=== PATIENT | female | born 1980 | race Caucasian/White ===

== ENCOUNTER 2018-08-26 08:36 | Inpatient (IN) ==
--- NOTE | 2018-08-26 09:40 | OB/GYN Procedure Note ---
Addendum entered and electronically signed by Herlinda Krishna MD 08/27/18 00:18: I personally supervised Dr. Love with the procedure below and agree with documentation below. Herlinda Krishna M.D. Original Note: Delivery - Delivery Date: 08/26/18 Provider: Apple Love (with Dr. Krishna) Intrapartum events: precipitous labor- <3hr Delivery induction: none Delivery monitor: none Anesthesia: local Quantitated Blood Loss: 50 - (s) A Infant Delivery Date: 08/26/18 Delivery Time: 08:04 (Delivered in car unattended by medical personel) Presentation: vertex Position: unknown Route of delivery: Gender: Female Viability: Viable Pounds: 5 Ounces: 15 Weight Gram: 2.685 kg Placenta: spontaneous Cord: 3 umbilical vessels - Repair Episiotomy: none Laceration Description: Perineal - 2nd Degree - Complications Delivery complications: other (Infant delivered in car en route to hospital unattended by medical personel.) Delivery comments: 38yo @ 39.2wga by US presented to L&D via EMS after delivering a viable female infant, without medical personnel, in her car @ 0804. Placenta undelivered with cord hanging from vagina with clamp. Pt moved to bed on L&D at arrival & perineum inspected. Second degree perineal laceration seen. 20cc of lidocaine injected prior to repair. Placenta delivered spontaneously, intact, with 3 vessel cord & held for possible Path exam. 10 units of oxytocin IM given. Laceration repaired with 3-0 Vicryl. EBL 50cc from repair. Drs. Love & Tomi present for placenta delivery & perineal repair. - Disposition Mom disposition: stable in LDR [place] disposition: taken to nursery
[2018-08-26 10:25] LABS: Basophils % 0.4 %; Eosinophils % 0.3 %; Hematocrit 33.4 % (35.3-44.9); Hemoglobin 10.9 g/dL (11.5-15.4); Immature Granulocytes % 0.4 % (0-4); Lymphocytes % 17.9 %; Mean Corpuscular HGB Conc 32.6 g/dL (31.6-35.5); Mean Corpuscular Hemoglobin 29.7 pg (28.0-33.3); Mean Platelet Volume 9.8 fL (9.4-12.4); Monocytes # 0.6 K/mcL (0.0-1.3); Neutrophils # 8.6 K/mcL (1.6-8.9); Platelet Count 237 K/mcL (140-400); Red Blood Count 3.67 M/mcL (3.82-4.97); Red Cell Distribution Width 12.6 % (11.5-14.5)
--- NOTE | 2018-08-26 10:27 | OB/GYN History & Physical ---
Date of Encounter: 08/26/18 Time of Encounter: 08:40 Assessment and Plan (1) Precipitous delivery, delivered (current hospitalization) Current visit: Yes Status: Acute (2) Advanced maternal age (AMA) in Current visit: Yes Status: Acute (3) Chronic hypertension affecting Current visit: Yes Status: Acute History of Present Illness HPI: Ms. Lim is a 38yo @ 39.2 wga by US who presents to L&D via EMS having delivered a viable female in her car @ 0804. She felt pressure @ 0530 & & ctxs @ 0630. The pt was en route to the hospital when she made her pulled into his mother's house around 0730 b/c she felt the "baby was coming." Pt states the baby delivered @ the same time her water broke. She denies VB, abnml vaginal discharge, CP, SOB, RUQ pain, MARQUIS, vision changes or dysuria. This was complicated by hypothyroid (she ran out of her Rx a few weeks ago & never got a refill), cHTN on 100mg labetalol BID, & anxiety on 50mg Zoloft BID. She did take her labetalol this morning. She doesn't check her BPs at home nor does she keep a log. She's uncertain what her BPs typically run. She sees Dr. Grimm for her PNC, she missed her last 2 appts. Past Med Surg Social Fam HX - Past Medical History Medical history: hypertension, thyroid disease Additional medical history: hypothyroidism Psychiatric history: anxiety - Past Surgical History Additional surgical history: right foot sx- pin placed s/p bunion removal @ 17yo - Social History Smoking Status: Never smoker Alcohol use: none Drug use: none - Family History Mother Living Status: Still Living Hx Family Cardiac Disorders: No Hx Family Respiratory Disorders: No Hx Family Cancer: No Hx Family GI Disorders: No Hx Family Genitourinary Disorders: No Hx Family Endocrine Disorder: No Hx Family Musculoskeletal Disorders: No Hx Family Neuromuscular Disorders: No Hx Family Neurologic Disorders: No Hx Family HEENT Disorders: No Hx Family Autoimmune Disorders: No Hx Family Reproductive Disorders: No Hx Family Psychosocial Disorders: No Hx Family Medical Disorders: No Obstetrical History - Pregnancies : 2 Para: 1 Term: 0 : 1 (2006- female infant, , mIOL for Pre-E w/o SF, 7.6 pounds) Livin Medications and Allergies Sertraline [Zoloft] 50 mg PO BID 08/24/15 [History] raNITIdine HCl [Zantac] 150 mg PO DAILY 01/06/18 [History] Labetalol [Trandate] 1 tab PO BID 08/26/18 [History] Levothyroxine [Synthroid] 1 tab PO DAILY 08/26/18 [History] Vit #108/Iron/FA [ One Tablet] 1 tab PO DAILY 08/26/18 [History] Allergy/AdvReac Type Severity Reaction Status Date / Time No Known Allergies Allergy Verified 08/24/15 18:49 Review of System OB All systems PM: reviewed and no additional remarkable complaints except as stated (per HPI) Exam - Constitutional Constitutional: well developed, well nourished, no acute distress, average body habitus - HEENT HEENT: EOMI, Normocephaly - Neck Neck exam: full ROM (Lungs: no Accessory muscle use) - Abdomen Abdomen: Present: non tender (: clamped cord hanging out of vagina, second degree perineal laceration noted, no lesions on vulva or vagina, normal external genitalia) Results Result Diagrams: 08/26/18 09:10 08/26/18 09:10 All other labs normal.
[2018-08-26 10:31] LABS: Alanine Aminotransferase 8 Units/L (7-52); Aspartate Amino Transferase 12 Units/L (13-39); BUN/Creatinine Ratio 13 (6-26); Blood Urea Nitrogen 9 mg/dL (6-20); Lactate Dehydrogenase 141 Units/L (140-271); Uric Acid 3.9 mg/dL (2.3-7.6); eGFR For Non-African Americans > 60 (> 60)
[2018-08-26] MEDS ORDERED: Ibuprofen 600 MG TABLET PO ONE (10:36)
[2018-08-26] MEDS ORDERED: *HR* Oxytocin 10 UNIT/ML VIAL IM ONE (11:08)
[2018-08-26] MEDS ORDERED: Acetaminophen 325 MG TABLET PO PRN (11:24)
[2018-08-26] MEDS: Ibuprofen 600 MG TABLET PO SCH (20:38)
[2018-08-27] MEDS: Ibuprofen 600 MG TABLET PO SCH (05:22)
[2018-08-27] MEDS ORDERED: Levothyroxine 25 MCG TABLET PO SCH (06:30)
[2018-08-27] MEDS ORDERED: Famotidine 20 MG TABLET PO SCH (07:30)
[2018-08-27 07:48] VITALS: BP 145/87
--- NOTE | 2018-08-27 08:45 | Discharge Summary ---
Date of Encounter: 08/27/18 Time of Encounter: 08:44 - Discharge Diagnosis (1) Status post vaginal delivery Priority: Primary Status: Acute Comments: Pt meeting PPD1 milestones. Reports pain is controlled with Ibuprofen. Reports good mood. Pt plans to work with today for pumping and . Discussed BC options and safe spacing. Denies BC at this time, partner plans to get a vasectomy. Pt desires discharge today and to guest while infant is in SCN. - Discharge Medications Prescriptions: Ibuprofen [Motrin] 600 mg PO Q6HR #60 tablet Breast Pump [BREAST PUMP] 1 each .ROUTE AD #1 each Docusate [Colace] 100 mg PO BID #60 capsule Home Medications: Sertraline [Zoloft] 50 mg PO BID 08/24/15 [History] raNITIdine HCl [Zantac] 150 mg PO DAILY 01/06/18 [History] Labetalol [Trandate] 1 tab PO BID 08/26/18 [History] Levothyroxine [Synthroid] 1 tab PO DAILY 08/26/18 [History] Vit #108/Iron/FA [ One Tablet] 1 tab PO DAILY 08/26/18 [History] Breast Pump [BREAST PUMP] 1 each .ROUTE AD #1 each 08/27/18 [Rx] Docusate [Colace] 100 mg PO BID #60 capsule 08/27/18 [Rx] Ibuprofen [Motrin] 600 mg PO Q6HR #60 tablet 08/27/18 [Rx] Allergies/Adverse Reactions: Allergy/AdvReac Type Severity Reaction Status Date / Time No Known Allergies Allergy Verified 08/24/15 18:49 Data Procedures and tests throughout hospitalization: Laboratory Tests 08/26/18 08/26/18 09:10 09:10 WBC 11.3 H RBC 3.67 L Hgb 10.9 L Hct 33.4 L MCV 91.0 MCH 29.7 MCHC 32.6 RDW 12.6 Plt Count 237 MPV 9.8 Immature Gran % 0.4 Seg Neutrophils % 76.0 Lymphocytes % 17.9 Monocytes % 5.0 Eosinophils % 0.3 Basophils % 0.4 Neutrophils # 8.6 Lymphocytes # 2.0 Monocytes # 0.6 Eosinophils # 0.0 Basophils # 0.0 BUN 9 Creatinine 0.70 Est GFR ( Amer) > 60 Est GFR (Non-Af Amer) > 60 BUN/Creatinine Ratio 13 Uric Acid 3.9 AST 12 L ALT 8 Lactate Dehydrogenase 141 Labs on day of discharge: Labs from last 24 hours 08/26/18 08/26/18 09:10 09:10 WBC 11.3 H RBC 3.67 L Hgb 10.9 L Hct 33.4 L MCV 91.0 MCH 29.7 MCHC 32.6 RDW 12.6 Plt Count 237 MPV 9.8 Immature Gran % 0.4 Seg Neutrophils % 76.0 Lymphocytes % 17.9 Monocytes % 5.0 Eosinophils % 0.3 Basophils % 0.4 Neutrophils # 8.6 Lymphocytes # 2.0 Monocytes # 0.6 Eosinophils # 0.0 Basophils # 0.0 BUN 9 Creatinine 0.70 Est GFR ( Amer) > 60 Est GFR (Non-Af Amer) > 60 BUN/Creatinine Ratio 13 Uric Acid 3.9 AST 12 L ALT 8 Lactate Dehydrogenase 141 Date of admission: 08/26/18 08:36 Primary care physician: Sandie Grossman CNP Consults: 08/26/18 11:24 Consult to Draw End Hand [CONS] Routine Comment: Vaginal delivery, consult needed Consult to Android Programmer [CONS] Routine Reason for SW Consult: Limited care, precipitous delivery outside of institution, in car, missed appointments at the end of Discharging clinician: Sandra Fernando Anticipated date of discharge: 08/27/18 - Patient Status Disposition: Home, Self-Care Condition: Good Functional capacity at discharge: independent ambulation Overall status at discharge: patient is back to baseline - Discharge Instructions Follow Up With: Sandie Grossman CNP [Primary Care Provider] - Malik Grimm MD [Partnered Physician] - - Diet and Activity Activity: increase activity as tolerated Diet: advance to your usual diet Hospital Course Reason for admission: IUP at term Delivery: Episiotomy: none Laceration: 2nd degree Other procedures: none complications: none Discharge diagnosis: IUP at term delivered [place] baby: female Hospital course: - Delivery Date: 08/26/18 Provider: Apple Love (with Dr. Krishna) Intrapartum events: precipitous labor- <3hr Delivery induction: none Delivery monitor: none Anesthesia: local Quantitated Blood Loss: 50 - Infant (s) A Infant Delivery Date: 08/26/18 Delivery Time: 08:04 (Delivered in car unattended by medical personel) Presentation: vertex Position: unknown Route of delivery: Gender: Female Viability: Viable Pounds: 5 Ounces: 15 Weight Gram: 2.685 kg Placenta: spontaneous Cord: 3 umbilical vessels - Repair Episiotomy: none Laceration Description: Perineal - 2nd Degree - Complications Delivery complications: other ( delivered in car en route to hospital unattended by medical personel.) Delivery comments: 38yo @ 39.2wga by US presented to L&D via EMS after delivering a viable female infant, without medical personnel, in her car @ 0804. Placenta undelivered with cord hanging from vagina with clamp. Pt moved to bed on L&D at arrival & perineum inspected. Second degree perineal laceration seen. 20cc of lidocaine injected prior to repair. Placenta delivered spontaneously, intact, with 3 vessel cord & held for possible Path exam. 10 units of oxytocin IM given. Laceration repaired with 3-0 Vicryl. EBL 50cc from repair. Drs. Love & Tomi present for placenta delivery & perineal repair. - Disposition Mom disposition: stable in LDR [place] disposition: taken to nursery Time Attestation: Total time spent providing and/or coordinating discharge services: Exam - Constitutional Vitals: Temp Pulse Resp BP Pulse Ox 97.8 F 86 14 145/87 99 08/27/18 07:47 08/27/18 07:47 08/27/18 07:47 08/27/18 07:47 08/27/18 07:47 General appearance IM: A&O X 3, pleasant, no acute distress - Respiratory Respiratory exam: Present: CTAB - Cardiovascular Cardiovascular exam IM: Present: RRR - GI/Abdominal GI/Abdominal exam IM: normal bowel sounds - Uterine Tone: Firm Uterus Position: 1 Finger Below Umbilicus - Extremities Exam Extremities exam IM: Present: normal capillary refill, normal inspection, pedal edema (mild bilateral ). Absent: calf tenderness - Neurological Exam Neurological exam: alert, oriented X3, reflexes normal
[2018-08-27] MEDS ORDERED: Prenatal Vit/FA 1 EACH TABLET PO SCH (09:00)
[2018-08-27] MEDS ORDERED: Benzocaine/Menthol 56 GM AEROSOL SPRAY TP PRN (11:45)
== END 2018-08-27 12:44 | disposition home or self-care (01) | DRG 806 ==
LOC: 1NENULAB 08:36 → 1NENUOBS 11:23
PROVIDERS: ADMIT Advanced Practice Midwife; ATTEND Advanced Practice Midwife